=== PATIENT | male | born 1995 | race African-American/Black ===

== ENCOUNTER 2016-03-29 09:17 | Emergency (ER) | payer SELFPAY ==
[2016-03-29] MEDS ORDERED: PERM60CR11 TP (11:09)
--- NOTE | 2016-03-29 11:10 | PHYS DOC ---
Past Medical History Past Medical History: No Pertinent History Past Surgical History: No Surgical History Additional Information: Nonsmoker Alcohol Use: Rarely Drug Use: None Adult General Chief Complaint Chief Complaint: INSECT BITE [facility] HPI Patient is a 21 year old male who presents with itchy rash for 4 days. The rash is on his back with a few spots on his abdomen as well. His brother had a similar rash after sleeping at a friend's house. His brother was diagnosed with scabies. The patient also is noted to have multiple linear abrasions on the left forearm when he removed his shirt to display his rash. The patient admits to cutting. He states that he was having suicidal thoughts approximately 2 weeks ago but is feeling better now. The cuts are from approximately 3 days ago. His mother was just informed of the rash and noticed the abrasions today as well. Patient and his mother report that they had a conversation about the cutting. The patient does not feel that he needs any intervention at this time. He is willing to speak with a member of our PAT team while here today to receive resources for outpatient evaluation. He denies any current suicidal ideation or plan. Review of Systems Review of Systems Constitutional: Denies fever or chills. [] Musculoskeletal: Denies back pain or joint pain. [] Integument: Reports itchy rash and abrasions to left forearm. Neurologic: Denies headache, focal weakness or sensory changes. [] Psych: Denies current suicidal or homicidal ideation. Reports cutting and depression. All systems reviewed and negative unless otherwise stated in the HPI. Allergies Allergies Allergies Coded Allergies Type Severity Reaction Last Updated Verified No Known Drug Allergies 03/29/16 No Physical Exam Physical Exam Constitutional: Well developed, well nourished, no acute distress, non-toxic appearance. [] HENT: Normocephalic, atraumatic, oropharynx moist. [] Eyes: PERRLA, EOMI, conjunctiva normal, no discharge. [] Neck: Normal range of motion, no tenderness, supple, no stridor. [] Skin: Warm, dry. The back is covered with erythematous papular lesions, many with a linear pattern. There is also a patch on the abdomen near the umbilicus with similar pattern. There are multiple superficial linear abrasions to the left forearm consistent with cutting or self mutilation. Back: No midline tenderness, no CVA tenderness. [] Extremities: No tenderness, ROM intact, no edema. Distal pulses equal bilaterally. [] Neurologic: Alert and oriented X 3, normal motor function, normal sensory function, no focal deficits noted. [] Psychologic: Affect normal, judgement normal, mood normal. The patient denies any current suicidal ideation or plan to hurt himself. EKG EKG [] Radiology/Procedures Radiology/Procedures [] Course & Med Decision Making Course & Med Decision Making Pertinent Labs and Imaging studies reviewed. (See chart for details) Patient presents with rash consistent with scabies. He is also noted to have abrasions to the left forearm from cutting. He agreed to speak with a member of our PAT team. Dane spoke with the patient. He believes that the patient's cutting is due to situational depression, as he has recently been unemployed, living from couch to couch with friends, and is still processing emotions regarding the of his father. He is not currently suicidal. The patient's mother is supportive and has told him that he is welcome to stay with her. The patient was given follow-up information for [facility] by Dane. They will follow-up today or tomorrow. The patient is instructed to return immediately if having thoughts of hurting himself or others. The patient and his mother in agreement with this plan. Natalie Disclaimer Natalie Disclaimer This electronic medical record was generated, in whole or in part, using a voice recognition dictation system. Departure Departure Impression: Primary Impression: Scabies Additional Impression: Depression Disposition: 01 HOME, SELF-CARE Condition: STABLE Referrals: NO PCP (PCP) Patient Instructions: Depression, Adult, [id number], Scabies Additional Instructions: Please follow up with the [facility] regarding your depression. Return to the emergency department if you have thoughts of hurting yourself or others. Scripts Permethrin (Elimite)60 Gm Cream..g.60 Gm TP 1X #60 Prov:BRIAN PAGE 03/29/16 Problem Qualifiers Additional Impression: BRIAN PAGE Mar 29, 2016 11:10
[2016-03-29 11:26] VITALS: BP 134/79
[2016-03-29] MEDS ORDERED: DIPHENHYDRAMINE HCL 25 MG CAPSULE PO ONE (11:30)
== END 2016-03-29 11:49 | disposition home or self-care (01) ==
LOC: ER 09:17
DX: B86 Scabies (principal); F32.9 Major depressive disorder, single episode, unspecified
CPT/HCPCS: 99283; Q0163

== ENCOUNTER 2019-04-10 00:19 | Emergency (ER) | payer SELFPAY ==
[~2019-04-10] VITALS: Ht 185.4 cm; Wt 90.0 kg
[~2019-04-10 00:19] MED LIST: PERM60CR11 TP
[2019-04-10 00:32] VITALS: BP 150/110
--- NOTE | 2019-04-10 00:58 | PHYS DOC ---
Past Medical History Past Medical History: No Pertinent History Past Surgical History: No Surgical History Alcohol Use: Rarely Drug Use: None Adult General Chief Complaint Chief Complaint: LACERATION/AVULSION HPI HPI 24 yo male presents to the ER after laceration to his chin/mouth. Patient states he was doing push ups and a speaker fell, patient hit his mouth on the floor, his tooth went through his lip. Patient has no other complaints at this time. Patient denies LOC. Patient without PMH . All other ROS negative unless documented in HPI Review of Systems Review of Systems See Above Current Medications Current Medications Current Medications Medications (Trade) Dose Ordered Sig/Alexandra Start Time Stop Time Status Last Admin Dose Admin Lidocaine/ Epinephrine (LIDOCAINE 2%-EPI 1:100,000 multi-dose) 20 ml 1X ONCE 04/10/19 01:00 04/10/19 01:01 DC Allergies Allergies Allergies Coded Allergies Type Severity Reaction Last Updated Verified No Known Drug Allergies 03/29/16 No Physical Exam Physical Exam See Above Constitutional: Well developed, well nourished, no acute distress, non-toxic appearance. [] HENT: Normocephalic, atraumatic, bilateral external ears normal, oropharynx moist, 2.0 cm laceration through and through, no oral exudates, nose normal. [] Eyes: PERRLA, EOMI, conjunctiva normal, no discharge. [] Neck: Normal range of motion, no tenderness, supple, no stridor. [] Cardiovascular:Heart rate regular rhythm, no murmur [] Lungs & Thorax: Bilateral breath sounds clear to auscultation [] Skin: Warm, dry, no erythema, no rash. [] Neurologic: Alert and oriented X 3, no focal deficits noted. [] Psychologic: Affect normal, judgement normal, mood normal. [] Current Patient Data Vital Signs Vital Signs Date Time Temp Pulse Resp B/P (MAP) Pulse Ox O2 Delivery O2 Flow Rate FiO2 04/10/19 00:32 98.5 80 18 150/110 (123) 99 Room Air 98.5 EKG EKG [] Radiology/Procedures Radiology/Procedures [] Course & Med Decision Making Course & Med Decision Making Pertinent Labs and Imaging studies reviewed. (See chart for details) [] 24 yo male presents to the ER after laceration to his chin/mouth. Patient states he was doing push ups and a speaker fell, patient hit his mouth on the floor, his tooth went through his lip. Patient has no other complaints at this time. Patient denies LOC. Patient without PMH Tetanus shot provided Laceration Repair by me: Anesthesia: 2% lidocaine/epi locally Location: inside lip and chin Tendon/Joint/Nerves: No injury Foreign body: None detected after copious irrigation and exploration Technique: 4 Simple Interrupted Sutures prolene Complexity: 6 subcutaneous sutures/mucosal repair/edge excision Post Closure Length: 2 cm Patient's bleeding was easily controlled in the department and there is no indication of anemia. No evidence of compartment syndrome, neurologic injury, vascular injury, open joint, tendon laceration, or foreign body. Patient is appropriate for outpatient follow up. Scar minimization instructions given. Dragon Disclaimer Dragon Disclaimer This electronic medical record was generated, in whole or in part, using a voice recognition dictation system. Departure Departure Impression: Primary Impression: Laceration Disposition: HOME, SELF-CARE Condition: IMPROVED Referrals: NO PCP (PCP) Patient Instructions: Facial Laceration, [id number], Laceration Care, Adult, [id number] Additional Instructions: Recommend follow up with PCP 3 - 5 days Return to the ER with worsening symptoms, intractable pain, fever, altered mental status Tylenol/Motrin as needed for pain Take antibiotics as prescribed 5 - 7 days for suture removal Scripts Amoxicillin/Potassium Clav (AUGMENTIN 875-125 TABLET) 1 Each Tablet 1 TAB PO Q12HR for 7 Days, #14 TAB Prov: KRISHNA HOFF MD 04/10/19 KRISHNA HOFF MD Apr 10, 2019 00:58
[2019-04-10] MEDS ORDERED: LIDOCAINE 2%/EPI 1:100,000 20 ML VIAL. IJ ONE (01:00)
[2019-04-10] MEDS ORDERED: AMOX1TAB61 PO (02:32)
[2019-04-10] MEDS ORDERED: NEOMY/BACITR/POLYMYXIN OINT PACKET. TP ONE (02:32)
[2019-04-10] MEDS ORDERED: DIPHTH,PERTUSS(ACELL),TET TOX 0.5 ML DISP.SYRIN. VAX IM ONE ×2 (02:32→03:00)
== END 2019-04-10 02:56 | disposition home or self-care (01) ==
LOC: ER 00:19
DX: S01.511A Laceration without foreign body of lip, initial encounter (principal); S01.81XA Laceration without foreign body of other part of head, initial encounter; W20.8XXA Other cause of strike by thrown, projected or falling object, initial encounter; Y93.B2 Activity, push-ups, pull-ups, sit-ups; Y92.89 Other specified places as the place of occurrence of the external cause; Y99.8 Other external cause status
CPT/HCPCS: 12011; 90471; 90715; 99283; J3490